=== PATIENT | female | born 1985 ===

== ENCOUNTER 2023-01-16 15:46 | Inpatient (IN) | payer OTHER ==
[~2023-01-16] VITALS: Ht 165.1 cm; Wt 78.0 kg
[2023-01-17] MEDS ORDERED: CATAFLAM PO (10:17)
[2023-01-17] MEDS ORDERED: CLONAZE PO (10:18)
[2023-01-17] MEDS ORDERED: ESTAZOLAM2 MG PO (10:18)
[2023-01-17] MEDS ORDERED: OMEPRAZ PO (10:19)
[2023-01-21] MEDS ORDERED: CYCLOSPORINE1 EACH (13:12)
[2023-01-21] MEDS ORDERED: CLONAZEPAM0.125 MG (13:14)
[2023-01-21] MEDS ORDERED: OMEPRAZOLE40 MG (13:14)
[2023-01-21] MEDS ORDERED: ZIPSOR25 MG (13:16)
[2023-01-22] MEDS ORDERED: IBU800 MG PO (07:03)
[2023-01-22] MEDS ORDERED: NEURONTIN300 MG PO (07:04)
[2023-01-22] MEDS ORDERED: CLOBETASOL EMOL15 GM TOP (07:05)
== END 2023-01-22 11:32 | disposition home or self-care (01) | DRG 743 ==
LOC: OB/GYN 01-21 08:15 → O/R 01-21 12:03 → OB/GYN 01-21 15:45
PROVIDERS: ADMIT Obstetrics & Gynecology Gynecology; ATTEND Obstetrics & Gynecology Gynecology
PROC: 0UB90ZZ Excision of Uterus, Open Approach (ICD-10-PCS; principal; 2023-01-21 15:45)
DX: D25.0 Submucous leiomyoma of uterus (principal); Z20.822 Contact with and (suspected) exposure to COVID-19